=== PATIENT | female | born 1990 ===

== ENCOUNTER 2020-11-14 10:30 | Outpatient (RCR) | payer OTHER, SELFPAY ==
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
--- NOTE | 2020-11-15 10:10 | PC.ADMIT ---
Patient is a 30 year old female who was referred to [facility] by her therapist d/t increased depression with passive SI, anxiety, and PTSD sxs secondary to work related stressors secondary to the pandemic, financial stressors, stressors r/t the political enviornment and medical issues. Patient presents with depressed mood anxious affect. Reports passive SI no plan or intent. Reports hx of SIB last cut self in 2018. Reports hx of banging her head last incident one week ago. Wants to learn healthier coping skills to deal with her emotions. Patient gave verbal permission to email her a copy of her safety plan. Patient reports medical issues including Fibromyalgia and Post Lyme disease syndrome. 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 Patient stated when she has an episode her body goes limp and presents with dissociative features. Patients medications reconciled with patient and patient's pharmacy. She reports taking her medications as prescribed.
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
--- NOTE | 2020-11-16 15:00 | PC.NURSE ---
Pt called and left a message around 9am. She said she has spoken to her therapist, and that they decided it would be best if she discontinued PHP at [facility] at this time because it's not a good fit. She said she and her therapist are working on getting her into a queer-based PHP program in [facility] and that she has some other supports in place She thanked me and staff for the help.
== END 2020-11-15 23:55 | disposition left against medical advice (07) ==
LOC: HO.PHPA 10:30
PROVIDERS: Visit Provider Psychiatry & Neurology Psychiatry
DX: F43.10 Post-traumatic stress disorder, unspecified (principal); F33.2 Major depressive disorder, recurrent severe without psychotic features; F12.20 Cannabis dependence, uncomplicated; F44.5 Conversion disorder with seizures or convulsions; F10.21 Alcohol dependence, in remission
CPT/HCPCS: 90791; 90853